=== PATIENT | male | born 1955 | race Caucasian/White ===

== ENCOUNTER → 2016-05-30 | Outpatient (CLI) | payer OTHER ==
--- NOTE | 2016-05-30 16:48 | DX ---
PA and lateral chest x-ray 1624 hours. History: Hemoptysis for 3 days. Findings: Comparison to March 06, 2016. Heart size and pulmonary vasculature are within normal limits. There is mild prominent interstitial m arkings right mid and lower lung suspicious for interstitial infiltrate/pneumonia. The remainder the lungs are clear. There are no effusions. Arteriosclerotic calcification is present at the aortic arch level. Osseous structures are unchanged. Mild to moderate hiatal hernia suspected. Impression: 1. Interstitial infiltrate/pneumonia suspected right mid to lower lung.
== END ==
LOC: BMCIMAGING 16:25
PROVIDERS: ATTEND Internal Medicine
DX: R04.2 Hemoptysis (principal)

== ENCOUNTER → 2016-06-12 | Outpatient (CLI) | payer OTHER ==
--- NOTE | 2016-06-12 13:43 | DX ---
Chest, Two Views at 1239 hours History: Unspecified bacterial pneumonia, Sea 15.9. Comparison: May 30, 2016 Findings: Cardiac silhouette is within normal range. Atherosclerotic aorta. Cervical fusion plate. Re solution of previous right pneumonia. Small hiatal hernia. No pneumonia, congestive heart failure, pl eural effusion, or pneumothorax. Impression: 1. No definite residual pneumonia. 2. Atherosclerotic aorta. 3. Small hiatal hernia.
== END ==
LOC: BMCIMAGING 12:41
PROVIDERS: ATTEND Internal Medicine
DX: R59.9 Enlarged lymph nodes, unspecified (principal); K90.0 Celiac disease

== ENCOUNTER → 2016-07-16 | Outpatient (CLI) | payer OTHER ==
[~2016-07-16] MED LIST: IOPAMIDOL (ISOVUE-300) 100 ML BTL IV ONE
== END ==
LOC: CIMAGING 15:30
PROVIDERS: ATTEND Internal Medicine
DX: R91.8 Other nonspecific abnormal finding of lung field (principal); R91.1 Solitary pulmonary nodule; J98.11 Atelectasis; I25.10 Atherosclerotic heart disease of native coronary artery without angina pectoris; K44.9 Diaphragmatic hernia without obstruction or gangrene; K76.89 Other specified diseases of liver; Z87.891 Personal history of nicotine dependence
CPT/HCPCS: 71260-PO; Q9967

== ENCOUNTER 2016-09-18 11:37 | Day surgery (SDC) | payer OTHER ==
[2016-09-18] MEDS ORDERED: fentaNYL 100 MCG/2 ML INJ ONE (12:08)
[2016-09-18] MEDS ORDERED: MIDAZOLAM 2 MG/2 ML VIAL ONE ×3 (12:08→12:51)
[2016-09-18] MEDS ORDERED: ALBUTEROL 3 ML DEYVIAL ONE (12:09)
[2016-09-18] MEDS ORDERED: LIDOCAINE 2% JELLY 5 ML TUBE ONE (12:11)
[2016-09-18] MEDS ORDERED: LIDOCAINE 1% 2 ML INJ ONE (12:14)
[2016-09-18] MEDS ORDERED: LIDOCAINE 1% 2 ML INJ ID PRN (12:21)
--- NOTE | 2016-09-18 14:08 | GPN ---
[f rep st] PROCEDURE NOTE DATE OF PROCEDURE: 09/18/2016 REASON FOR BRONCHOSCOPY: Ground-glass opacities. CONDITIONS: Procedure was performed in the endoscopy suite with continuous pulse ox, EKG, and blood pressure monitoring. Procedure was performed in a negative airflow room. N95 masks were used throughout the procedure by all. ANESTHESIA GIVEN: He received Versed 6 mg, fentanyl 125 mcg. He also received 1% lidocaine topical ly and 4% lidocaine nebulized. DESCRIPTION OF PROCEDURE: Bronchoscope was entered orally. Vocal cords were visualized and opposed easily. Trachea and virgilio were visualized and showed no endobronchial lesions and normal-appearin g mucosa. Bronchoscope was in the left lung: Left upper lobe, lingula, left lower lobe including s ub-segments were visualized, showing no endobronchial lesions and normal-appearing mucosa. Bronchos cope was in the right lung: Right upper lobe, right middle lobe, right lower lobe including sub-seg ments were subsequently visualized and showed no endobronchial lesions and normal-appearing mucosa. Via fluoroscopy, transbronchial biopsies were taken from the right lower lobe. This was sent for P athology. Bronchoalveolar lavage was taken from the right lower lobe. This was sent for C and S, A FB, fungal cultures, and cytology. Patient tolerated the procedure well. There were no apparent co mplications. Portable chest x-ray has been called for. /[id number]/MODL
== END 2016-09-18 14:40 | disposition home or self-care (01) ==
LOC: FSGY 11:37
PROVIDERS: ATTEND Internal Medicine Pulmonary Disease
PROC: 0BBF8ZX Excision of Right Lower Lung Lobe, Via Natural or Artificial Opening Endoscopic, Diagnostic (ICD-10-PCS; principal; 2016-09-18 12:30)
DX: J44.9 Chronic obstructive pulmonary disease, unspecified (principal); R91.8 Other nonspecific abnormal finding of lung field; R04.2 Hemoptysis; K21.9 Gastro-esophageal reflux disease without esophagitis; I10 Essential (primary) hypertension; Z87.891 Personal history of nicotine dependence; Z80.0 Family history of malignant neoplasm of digestive organs
CPT/HCPCS: J0171; J2250; J3010

== ENCOUNTER → 2017-04-30 | Outpatient (CLI) | payer OTHER | PROVIDERS: ATTEND Otolaryngology | DX: R13.10 Dysphagia, unspecified (principal); K21.9 Gastro-esophageal reflux disease without esophagitis | CPT/HCPCS: 92611-GN ==

== ENCOUNTER → 2017-09-22 | Outpatient (CLI) | payer OTHER | LOC: CIMAGING 14:16 | PROVIDERS: ATTEND Internal Medicine Pulmonary Disease | DX: R91.8 Other nonspecific abnormal finding of lung field (principal); I25.10 Atherosclerotic heart disease of native coronary artery without angina pectoris | CPT/HCPCS: 71250-PO ==

== ENCOUNTER → 2018-04-09 | Outpatient (CLI) | payer OTHER | LOC: FIMAGING 13:33 | PROVIDERS: ATTEND Surgery | DX: R91.1 Solitary pulmonary nodule (principal) ==